=== PATIENT | female | born 1985 | race American Indian/Alaskan Native ===

== ENCOUNTER 2017-06-23 18:53 | Emergency (ER) | payer MEDICAID ==
[2017-06-23 19:24] VITALS: BP 165/90
--- NOTE | 2017-06-23 20:20 | XRay Report ---
FINAL REPORT EXAM: XR SHOULDER 2+V LT HISTORY: pain COMPARISON: None available. FINDINGS: Three views of the left shoulder obtained. Bony structures are intact. Joint spaces are preserved. No acute fracture dislocation. IMPRESSION: No acute bony abnormality.
--- NOTE | 2017-06-23 20:21 | XRay Report ---
FINAL REPORT EXAM: XR HUMERUS 2+V LT HISTORY: pain COMPARISON: Left shoulder from the same date. FINDINGS: Two views of the left humerus obtained. Bony structures are intact. Joint spaces are preserved. No acute fracture dislocation. IMPRESSION: No acute bony abnormality.
[2017-06-23] MEDS ORDERED: MARCAINE 0.5% INFILTRATI ONE ×2 (20:48→21:18)
[2017-06-23] MEDS ORDERED: XYLOCAINE 2% INFILTRATI ONE ×2 (20:48→21:18)
--- NOTE | 2017-06-23 21:09 | Emergency Department Report ---
Upper Extremity - HPI Chief Complaint: Extremity Injury, Upper Stated Complaint: BACK/SHOULDER/TOOTH PAIN Time Seen by Provider: 06/23/17 20:49 Upper Extremity: Left Shoulder, Left Arm Occurred When: 2 Days (FELL IN THE SHOWER) Mechanism: Fall Severity: moderate (LARGE ECCHYMOSIS) Symptoms: Yes Pain with Movement, Yes Swelling, Yes Bruising/Ecchymosis (LARGE AREA) ED Review of Systems ROS: Stated complaint: BACK/SHOULDER/TOOTH PAIN Other details as noted in HPI Constitutional: denies: chills, fever Eyes: denies: eye pain, eye discharge, vision change ENT: dental pain. denies: ear pain, throat pain Respiratory: denies: cough, shortness of breath, wheezing Cardiovascular: denies: chest pain, palpitations Endocrine: no symptoms reported Gastrointestinal: denies: abdominal pain, nausea, diarrhea Genitourinary: denies: urgency, dysuria, discharge Musculoskeletal: denies: back pain, joint swelling, arthralgia Skin: denies: rash, lesions Neurological: denies: headache, weakness, paresthesias Psychiatric: denies: anxiety, depression Hematological/Lymphatic: denies: easy bleeding, easy bruising ED Past Medical Hx - Past Medical History Hx Hypertension: Yes Hx CVA: Yes Additional medical history: Eczema - Surgical History Hx Cholecystectomy: Yes Additional Surgical History: Bilateral Salpigectomy, Left Index finger hardware - Social History Smoking Status: Current Some Day Smoker Substance Use Type: None - Medications Home Medications: Home Medications Medication Instructions Recorded Confirmed Last Taken Type Lisinopril 20 mg PO DAILY 06/23/17 06/23/17 Unknown History Penicillin V Potassium 500 mg PO Q6HR #28 tablet 06/23/17 Unknown Rx oxyCODONE /ACETAMINOPHEN [Percocet 2 tab PO Q6HR PRN #14 tablet 06/23/17 Unknown Rx 5/325] Upper Extremity Exam - Exam General: Vital signs noted. No distress. Alert and acting appropriately. Head and Torso: Yes HEENT Abnormality (#16), No Neck Tenderness, No Chest/Lungs Abnormality, No Abdominal Tenderness, No Back Tenderness Shoulder Exam: Yes Shoulder Tenderness, Yes Normal Range of Motion in Shoulder, No Clavicle Tenderness, No Shoulder Deformity, No AC Joint Tenderness Arm Exam: Yes Arm/Humerus Tenderness (LEFT HUMERUS), No Arm Deformity Elbow: No Elbow Tenderness, No Normal Range of Motion in Elbow, No Elbow Deformity Forearm: No Forearm Tenderness, No Forearm Deformity, No Pain with Pronation, No Pain with Supination Wrist: Yes Normal ROM in Wrist, No Wrist Tenderness, No Wrist Deformity, No Snuffbox Tenderness, No Pain with Axial Thumb Compression Hand: Yes Normal ROM in Digit(s), No Hand Tenderness, No Hand Deformity, No Digit Tenderness, No Digit(s) Deformity, No Tendon Dysfunction CMS Exam: No Broken Skin, No Normal Distal Pulses, No Normal Capillary Refill, No Normal Distal Sensation ED Course Vital Signs 06/23/17 19:14 Temperature 98.2 F Pulse Rate 100 H Respiratory 18 Rate Blood Pressure 165/90 O2 Sat by Pulse 100 Oximetry - Nerve Block Consent Obtained: verbal consent Time Out Performed: Yes Local Anesthetic Used: Other (bupivicaine) Amount of anesthesia used: 3 Side: left Intraoral Nerve Block: superior alveolar Procedure Successful: Yes Complications: none Patient Tolerated Procedure: well ED Medical Decision Making - Radiology Data Radiology results: report reviewed (XRAY SHOULDER/HUMERUS:NEGATIVE FOR FRX/ NEGATIVE DISLOCATION) Critical care attestation.: If time is entered above; I have spent that time in minutes in the direct care of this critically ill patient, excluding procedure time. ED Disposition Clinical Impression: Dental caries Contusion of arm, left Qualifiers: Encounter type: initial encounter Qualified Code(s): S40.022A - Contusion of left upper arm, initial encounter Disposition: TO HOME OR SELFCARE Is pt being admited?: No Does the pt Need Aspirin: No Condition: Stable Additional Instructions: please follow up with your dentist Sunday as planned. Return to the ER for any worsening symptoms or for any reason Prescriptions: oxyCODONE /ACETAMINOPHEN [Percocet 5/325] 2 tab PO Q6HR PRN #14 tablet PRN Reason: Pain Penicillin V Potassium 500 mg PO Q6HR #28 tablet Referrals: PRIMARY CARE, [Primary Care Provider] - 3-5 Days [facility] [Outside] - 3-5 Days Time of Disposition: 21:54
== END 2017-06-23 22:30 | disposition home or self-care (01) ==
LOC: ED 18:53
DX: K02.9 Dental caries, unspecified (principal); S40.022A Contusion of left upper arm, initial encounter; I10 Essential (primary) hypertension; F17.200 Nicotine dependence, unspecified, uncomplicated; Z86.73 Personal history of transient ischemic attack (TIA), and cerebral infarction without residual deficits; Z90.49 Acquired absence of other specified parts of digestive tract; Z90.79 Acquired absence of other genital organ(s); W19.XXXA Unspecified fall, initial encounter; Y93.89 Activity, other specified; Y99.8 Other external cause status; Y92.89 Other specified places as the place of occurrence of the external cause